=== PATIENT | female | born 1940 | race Caucasian/White ===

== ENCOUNTER 2018-11-24 07:44 | Emergency (ER) | payer OTHER ==
[~2018-11-24] VITALS: Ht 154.9 cm; Wt 73.0 kg
[2018-11-24 07:51] VITALS: Ht 154.9 cm; Wt 73.0 kg
[2018-11-24 09:42] VITALS: BP 153/76
== END 2018-11-24 09:42 | disposition home or self-care (01) ==
LOC: ED 07:44
DX: G44.209 Tension-type headache, unspecified, not intractable (principal); G89.29 Other chronic pain; I16.0 Hypertensive urgency; Z88.0 Allergy status to penicillin; Z88.6 Allergy status to analgesic agent

== ENCOUNTER 2018-11-27 01:21 | Emergency (ER) | payer OTHER ==
[~2018-11-27] VITALS: Ht 154.9 cm; Wt 73.9 kg
[2018-11-27 01:28] VITALS: Ht 154.9 cm; Wt 73.9 kg
[2018-11-27 02:32] VITALS: BP 153/83
== END 2018-11-27 02:32 | disposition home or self-care (01) ==
LOC: ED 01:21
DX: I10 Essential (primary) hypertension (principal); Z88.0 Allergy status to penicillin; Z88.6 Allergy status to analgesic agent; Z85.3 Personal history of malignant neoplasm of breast; Z90.12 Acquired absence of left breast and nipple